=== PATIENT | male | born 1965 | race African-American/Black ===

== ENCOUNTER 2017-09-04 20:37 | Emergency (ER) | payer MEDICAID, OTHER ==
[~2017-09-04] VITALS: Ht 185.4 cm; Wt 80.0 kg
[~2017-09-04 20:37] MED LIST: ALBUAER3 INH; BECL80AE3 INH; CYCL10TA PO; OXYC-395 PO
[2017-09-04 20:48] VITALS: BP 113/75; PULSE 68; RESP 18; TEMP 97.8; O2SAT 99
--- NOTE | 2017-09-04 21:34 | PD ---
HPI Chief Complaint: Back/ Neck Pain or Injury Time Seen by Provider: 21:23 Travel History International Travel<30 days: No Contact w/Intl Traveler<30days: No Traveled to known affect area: No History of Present Illness HPI 51-year-old male with history of chronic low back pain, presents emergency department for evaluation of exacerbation of pain. Patient states he has been unable to get into a primary care provider or pain management due to insurance. Denies any new injury. States the pain in his left lower back, radiates to his left buttock and lower extremity. It is a constant ache, intermittently sharp. Denies any saddle paresthesia, loss of bowel or bladder, lower extremity weakness. Patient has no other symptoms to report. PFSH Past Medical History Asthma: Yes Diminished Hearing: No Tetanus Vaccination: Unknown Influenza Vaccination: No Social History Alcohol Use: No Tobacco Use: No Substance Use: No Allergies-Medications (Allergen,Severity, Reaction): Coded Allergies: penicillin G (Unverified Allergy, Unknown, 09/04/17) Reported Meds & Prescriptions Reported Meds & Active Scripts Active Medrol Dosepak (Methylprednisolone) 4 Mg Dspk 4 Mg PO DIRECTED Per Pharmacist direction Robaxin (Methocarbamol) 500 Mg Tab 500 Mg PO TID PRN Oxycodone (Oxycodone HCl) 10 Mg Tab 10 Mg PO Q6HR PRN Reported Proair Hfa 8.5 GM Inh (Albuterol Sulfate) 90 Mcg/Act Aer 2 Puff INH Q4-6H PRN 108 mcg/actuation Qvar Inh (Beclomethasone Dipropionate) 80 Mcg/Act Aero 1 Puff INH BID Flexeril (Cyclobenzaprine HCl) 10 Mg Tab 10 Mg PO TID Review of Systems Except as stated in HPI: all other systems reviewed are Neg Physical Exam Narrative GENERAL: Well-nourished, well-developed male patient, ambulatory with a nonantalgic gait no acute distress. SKIN: Focused skin assessment warm/dry. HEAD: Normocephalic. EYES: No scleral icterus. No injection or drainage. NECK: Supple, trachea midline. No JVD or lymphadenopathy. CARDIOVASCULAR: Regular rate and rhythm without murmurs, gallops, or rubs. RESPIRATORY: Breath sounds equal bilaterally. No accessory muscle use. GASTROINTESTINAL: Abdomen soft, non-tender, nondistended. MUSCULOSKELETAL: No cyanosis, or edema. 5+ strength equal bilateral extremities. Negative straight leg. Tenderness elicited palpation of the left sacroiliac joint. BACK: Nontender without obvious deformity. No CVA tenderness. Data Data Last Documented VS Vital Signs Date Time Temp Pulse Resp B/P (MAP) Pulse Ox O2 Delivery O2 Flow Rate FiO2 09/04/17 20:48 97.8 68 18 113/75 (88) 99 Orders Orders Orphenadrine Inj (Norflex Inj) (09/04/17 21:45) Ketorolac Inj (Toradol Inj) (09/04/17 21:45) Ed Discharge Order (09/04/17 22:06) [facility] Medical Decision Making Medical Screen Exam Complete: Yes Emergency Medical Condition: Yes Medical Record Reviewed: Yes Differential Diagnosis Chronic back pain versus low back strain versus discogenic pain versus radiculopathy versus sciatica Narrative Course 51-year-old male presents emergency department for evaluation of low back pain. Patient appears without distress. Vital signs are stable. Patient has no focal deficits weakness. She will be started on a short course of oral steroids and encouraged follow-up with primary care provider. He agrees to return immediately with any acute worsening symptoms. Diagnosis Primary Impression: Chronic low back pain Qualified Codes: M54.41 - Lumbago with sciatica, right side; G89.29 - Other chronic pain Referrals: Primary Care Physician Patient Instructions: Back Pain (ED), General Instructions Additional Instructions: Ice and/or warm moist heat may help to alleviate symptoms Avoid activity that exacerbates pain Avoid prolonged bedrest Follow-up with a primary care provider Seek pain management evaluation if symptoms persist Return immediately with any acute worsening symptoms Med/Other Pt SpecificInfo: Prescription(s) given Scripts Methylprednisolone Dosepak (Medrol Dosepak) 4 Mg Dspk 4 MG PO DIRECTED, #1 DSPK 0 Refills Per Pharmacist direction Prov: Zaida Acevedo 09/04/17 Methocarbamol (Robaxin) 500 Mg Tab 500 MG PO TID Y for MUSCLE SPASM, #20 TAB 0 Refills Prov: Zaida Acevedo 09/04/17 Disposition: 01 DISCHARGE HOME Condition: Stable Zaida Acevedo Sep 04, 2017 21:34
[2017-09-04] MEDS ORDERED: KETOROLAC TROMETHAMINE 60 MG/2 ML (IM) VIAL IM ONE (21:45)
[2017-09-04] MEDS ORDERED: ORPHENADRINE INJ 60 MG/2 ML AMP IM ONE (21:45)
[2017-09-04] MEDS ORDERED: ROBA500T PO (22:08)
[2017-09-04] MEDS ORDERED: MEDR4PAK PO (22:08)
== END 2017-09-04 22:35 | disposition home or self-care (01) ==
LOC: NEPD 20:37
DX: M54.41 Lumbago with sciatica, right side (principal); G89.29 Other chronic pain; J45.909 Unspecified asthma, uncomplicated
CPT/HCPCS: 96372; 99283; J1885; J2360